=== PATIENT | male | born 1995 | race Caucasian/White ===

== ENCOUNTER 2017-10-14 04:11 | Emergency (ER) | payer OTHER ==
--- NOTE | 2017-10-14 05:02 | EDM.PDOC ---
ED HPI GENERAL MEDICAL PROBLEM - General Chief Complaint: Respiratory Problem Stated Complaint: SEVERE COUGH Time Seen by Provider: 10/14/17 05:02 Source of Information: Reports: Patient - History of Present Illness INITIAL COMMENTS - FREE TEXT/NARRATIVE: HISTORY AND PHYSICAL: History of present illness: [Patient has fever cough your pain and sore throat intermittent wheeze over the last several days family has similar symptoms No nausea vomiting chills sweats no chest pain shortness breath headache dizziness palpitation No trismus drooling or muffled voice ] Review of systems: As per history of present illness and below otherwise all systems reviewed and negative. Past medical history: As per history of present illness and as reviewed below otherwise noncontributory. Surgical history: As per history of present illness and as reviewed below otherwise noncontributory. Social history: No reported history of drug or alcohol abuse. Family history: As per history of present illness and as reviewed below otherwise noncontributory. Physical exam: HEENT: Atraumatic, normocephalic, pupils reactive, negative for conjunctival pallor or scleral icterus, mucous membranes moist, throat clear, neck supple, nontender, trachea midline. Right and left tympanic membrane red obscured loss of landmarks slight bulge no mastoid tenderness right or left no meningeal sign Lungs: Clear to auscultation, breath sounds equal bilaterally, chest nontender. Post DuoNeb Heart: S1S2, regular, negative for clicks, rubs, or JVD. Abdomen: Soft, nondistended, nontender. Negative for masses or hepatosplenomegaly. Negative for costovertebral tenderness. Pelvis: Stable nontender. Genitourinary: Deferred. Rectal: Deferred. Extremities: Atraumatic, negative for cords or calf pain. Neurovascular unremarkable. Neuro: Awake, alert, oriented. Cranial nerves II through XII unremarkable. Cerebellum unremarkable. Motor and sensory unremarkable throughout. Exam nonfocal. Diagnostics: [Strep Influenza A Chest 2 views ] Therapeutics: [DuoNeb Solu-Medrol 125 mg IM Z-Sesar HFA] Impression: Acute bronchitis [Pharyngitis Fever Bilateral otitis media] Definitive disposition and diagnosis as appropriate pending reevaluation and review of above. throat Pain Score (Numeric/FACES): 5 - Related Data Allergies Allergy/AdvReac Type Severity Reaction Status Date / Time No Known Allergies Allergy Verified 10/14/17 04:24 Home Meds: Home Meds . [No Known Home Meds] 10/14/17 [History] Past Medical History HEENT History: Reports: None Cardiovascular History: Reports: None Respiratory History: Reports: None Gastrointestinal History: Reports: None Genitourinary History: Reports: None Musculoskeletal History: Reports: None Neurological History: Reports: None Psychiatric History: Reports: None Endocrine/Metabolic History: Reports: None Hematologic History: Reports: None Immunologic History: Reports: None Oncologic (Cancer) History: Reports: None Dermatologic History: Reports: None - Infectious Disease History Infectious Disease History: Reports: None Social & Family History - Family History Family Medical History: Noncontributory - Tobacco Use Smoking Status *Q: Never Smoker - Caffeine Use Caffeine Use: Reports: Coffee, Energy Drinks, Soda - Recreational Drug Use Recreational Drug Use: No ED ROS GENERAL - Review of Systems Review Of Systems: ROS reveals no pertinent complaints other than HPI. ED EXAM, GENERAL - Physical Exam Exam: See Below Course - Vital Signs Last Recorded V/S: Last Vital Signs Temp 97 F 10/14/17 04:24 Pulse 102 H 10/14/17 04:24 Resp 18 10/14/17 04:24 BP 145/82 H 10/14/17 04:24 Pulse Ox 96 10/14/17 04:24 - Orders/Labs/Meds Orders: Active Orders 24 hr Category Date Time Status RT Aerosol Therapy [RC] ASDIRECTED Care 10/14/17 05:06 Active Chest 2V [CR] Stat Exams 10/14/17 05:06 Taken CULTURE STREP A CONFIRMATION [RM] Stat Lab 10/14/17 04:35 Results STREP SCRN A RAPID W CULT CONF [RM] Stat Lab 10/14/17 04:35 Results Meds: Medications Discontinued Medications Generic Name Dose Route Start Last Admin Trade Name Freq PRN Reason Stop Dose Admin Albuterol/Ipratropium 3 ml 10/14/17 05:05 10/14/17 05:13 Duoneb 3.0-0.5 Mg/3 Ml NEB 10/14/17 05:06 3 ml ONETIME ONE Administration Methylprednisolone Sodium Succinate 125 mg 10/14/17 05:06 10/14/17 05:13 Solu-Medrol IM 10/14/17 05:07 125 mg ONETIME ONE Administration Departure - Departure Time of Disposition: 06:08 Disposition: Home, Self-Care 01 Condition: Good Clinical Impression: Acute bronchitis - Discharge Information Referrals: PCP,None [Primary Care Provider] - Forms: ED Department Discharge Additional Instructions: The following information is given to patients seen in the emergency department who are being discharged to home. This information is to outline your options for follow-up care. We provide all patients seen in our emergency department with a follow-up referral. The need for follow-up, as well as the timing and circumstances, are variable depending upon the specifics of your emergency department visit. If you don't have a primary care physician on staff, we will provide you with a referral. We always advise you to contact your personal physician following an emergency department visit to inform them of the circumstance of the visit and for follow-up with them and/or the need for any referrals to a consulting specialist. The emergency department will also refer you to a specialist when appropriate. This referral assures that you have the opportunity for follow-up care with a specialist. All of these measure are taken in an effort to provide you with optimal care, which includes your follow-up. Under all circumstances we always encourage you to contact your private physician who remains a resource for coordinating your care. When calling for follow-up care, please make the office aware that this follow-up is from your recent emergency room visit. If for any reason you are refused follow-up, please contact the [facility] emergency department at and asked to speak to the emergency department charge nurse. - My Orders Last 24 Hours: My Active Orders 10/14/17 04:35 CULTURE STREP A CONFIRMATION [RM] Stat STREP SCRN A RAPID W CULT CONF [RM] Stat 10/14/17 05:06 RT Aerosol Therapy [RC] ASDIRECTED Chest 2V [CR] Stat - Assessment/Plan Last 24 Hours: My Active Orders 10/14/17 04:35 CULTURE STREP A CONFIRMATION [RM] Stat STREP SCRN A RAPID W CULT CONF [RM] Stat 10/14/17 05:06 RT Aerosol Therapy [RC] ASDIRECTED Chest 2V [CR] Stat
[2017-10-14] MEDS ORDERED: Albuterol/Ipratropium 3.0-0.5 MG/3 ML Neb Soln NEB ONE (05:05)
[2017-10-14] MEDS ORDERED: methylPREDNISolone Sodium Succinate 125 MG/2 ML SDV IM ONE (05:06)
--- NOTE | 2017-10-14 11:20 | CR ---
EXAM DATE: 10/14/17 PATIENT'S AGE: 21 Patient: OMAIRA YEPEZ Facility: [place], [place] Site . Site : 1995 Study: XRay Chest [id number]/[id number] 5:40:11 AM Ordering Physician: Nita Murrell Final Report: INDICATIONS: Pain. Shortness of breath. Cough 2-3 weeks. TECHNIQUE: Chest 2 view. COMPARISON: None FINDINGS: No pneumothorax, pleural effusion or airspace consolidation. Cardiac and mediastinal contours are within normal limits. Upper abdomen and osseous structures show no acute abnormality. IMPRESSION: No evidence of acute cardiopulmonary disease. Dictated by Stephen House MD @ 10/14/2017 6:00:53 AM Dictated by: Stehpen House MD @ 10/14/2017 06:01:26 (Electronic Signature) Report Signed by Proxy. GRE[facility]AK[facility] HEALTH SYSTEMBrandy
== END 2017-10-14 06:15 | disposition home or self-care (01) ==
LOC: MW.ED 04:11
DX: J20.9 Acute bronchitis, unspecified (principal); H66.93 Otitis media, unspecified, bilateral; J02.9 Acute pharyngitis, unspecified
CPT/HCPCS: 71046; 87081; 87804; 87880; 94640; 96372; 99284; J2930; 99283

== ENCOUNTER 2019-01-21 13:45 | Emergency (ER) | payer OTHER ==
[2019-01-21] MEDS ORDERED: Ketorolac 30 MG/ML SDV IVPUSH ONE (13:48)
[2019-01-21] MEDS ORDERED: Ondansetron 4 MG/2 ML SDV IVPUSH ONE (13:48)
[2019-01-21] MEDS ORDERED: Sodium Chloride 0.9% 1,000 ML IV ONE (13:48)
--- NOTE | 2019-01-21 14:41 | EDM.PDOC ---
ED HPI GENERAL MEDICAL PROBLEM - General Chief Complaint: ENT Problem Stated Complaint: MIGRAINES Time Seen by Provider: 01/21/19 14:40 Source of Information: Reports: Patient - History of Present Illness INITIAL COMMENTS - FREE TEXT/NARRATIVE: HISTORY AND PHYSICAL: History of present illness: Patient presents with sore throat increasing in severity over the last 3-4 days some difficulty with solid food no difficulty with liquid no drooling trismus or muffled voice Patient has secondary complaint of mild sinus pressure and headache no nausea vomiting chills sweats no light sensitivity pain shortness of breath dizziness or palpitation no bowel or urine symptoms Review of systems: As per history of present illness and below otherwise all systems reviewed and negative. Past medical history: As per history of present illness and as reviewed below otherwise noncontributory. Surgical history: As per history of present illness and as reviewed below otherwise noncontributory. Social history: No reported history of drug or alcohol abuse. Family history: As per history of present illness and as reviewed below otherwise noncontributory. Physical exam: HEENT: Atraumatic, normocephalic, pupils reactive, negative for conjunctival pallor or scleral icterus, mucous membranes moist, throat clear, neck supple, nontender, trachea midline. Uttered erythema no exudates Lungs: Clear to auscultation, breath sounds equal bilaterally, chest nontender. Heart: S1S2, regular, negative for clicks, rubs, or JVD. Abdomen: Soft, nondistended, nontender. Negative for masses or hepatosplenomegaly. Negative for costovertebral tenderness. Pelvis: Stable nontender. Genitourinary: Deferred. Rectal: Deferred. Extremities: Atraumatic, negative for cords or calf pain. Neurovascular unremarkable. Neuro: Awake, alert, oriented. Cranial nerves II through XII unremarkable. Cerebellum unremarkable. Motor and sensory unremarkable throughout. Exam nonfocal. Diagnostics: [Strep/fluid ] Therapeutics: [Augmentin ] Impression: [Pharyngitis ] Definitive disposition and diagnosis as appropriate pending reevaluation and review of above. throat Pain Score (Numeric/FACES): 9 - Related Data Allergies Allergy/AdvReac Type Severity Reaction Status Date / Time No Known Allergies Allergy Verified 01/21/19 13:57 Home Meds: Home Meds . [No Known Home Meds] 10/14/17 [History] Past Medical History HEENT History: Reports: None Cardiovascular History: Reports: None Respiratory History: Reports: None Gastrointestinal History: Reports: None Genitourinary History: Reports: None Musculoskeletal History: Reports: None Neurological History: Reports: None Psychiatric History: Reports: None Endocrine/Metabolic History: Reports: None Hematologic History: Reports: None Immunologic History: Reports: None Oncologic (Cancer) History: Reports: None Dermatologic History: Reports: None - Infectious Disease History Infectious Disease History: Reports: None Social & Family History - Family History Family Medical History: Noncontributory - Tobacco Use Smoking Status *Q: Current Every Day Smoker Years of Tobacco use: 2 Packs/Tins Daily: 0.5 - Caffeine Use Caffeine Use: Reports: Coffee, Energy Drinks, Soda - Recreational Drug Use Recreational Drug Use: No ED ROS GENERAL - Review of Systems Review Of Systems: See Below ED EXAM, GENERAL - Physical Exam Exam: See Below Course - Vital Signs Last Recorded V/S: Last Vital Signs Temp 98.5 F 01/21/19 13:54 Pulse 113 H 01/21/19 13:54 Resp 18 01/21/19 13:54 BP 147/79 H 01/21/19 13:54 Pulse Ox 95 01/21/19 13:54 - Orders/Labs/Meds Orders: Active Orders 24 hr Category Date Time Status CULTURE STREP A CONFIRMATION [] Stat Lab 01/21/19 14:03 Results STREP SCRN A RAPID W CULT CONF [] Stat Lab 01/21/19 14:03 Results Meds: Medications Discontinued Medications Generic Name Dose Route Start Last Admin Trade Name Freq PRN Reason Stop Dose Admin Sodium Chloride 1,000 mls @ 999 mls/hr 01/21/19 13:48 01/21/19 14:09 Normal Saline IV 01/21/19 14:48 Not Given STAT ONE Ketorolac Tromethamine 30 mg 01/21/19 13:48 01/21/19 14:10 Toradol IVPUSH 01/21/19 13:49 Not Given ONETIME ONE Ondansetron HCl 8 mg 01/21/19 13:48 01/21/19 14:10 Zofran IVPUSH 01/21/19 13:49 Not Given ONETIME ONE Departure - Departure Time of Disposition: 14:43 Disposition: Home, Self-Care 01 Condition: Good Clinical Impression: Pharyngitis - Discharge Information Referrals: PCP,None [Primary Care Provider] - Forms: ED Department Discharge Additional Instructions: The following information is given to patients seen in the emergency department who are being discharged to home. This information is to outline your options for follow-up care. We provide all patients seen in our emergency department with a follow-up referral. The need for follow-up, as well as the timing and circumstances, are variable depending upon the specifics of your emergency department visit. If you don't have a primary care physician on staff, we will provide you with a referral. We always advise you to contact your personal physician following an emergency department visit to inform them of the circumstance of the visit and for follow-up with them and/or the need for any referrals to a consulting specialist. The emergency department will also refer you to a specialist when appropriate. This referral assures that you have the opportunity for follow-up care with a specialist. All of these measure are taken in an effort to provide you with optimal care, which includes your follow-up. Under all circumstances we always encourage you to contact your private physician who remains a resource for coordinating your care. When calling for follow-up care, please make the office aware that this follow-up is from your recent emergency room visit. If for any reason you are refused follow-up, please contact the [facility] emergency department at and asked to speak to the emergency department charge nurse. - My Orders Last 24 Hours: My Active Orders 01/21/19 14:03 CULTURE STREP A CONFIRMATION [RM] Stat STREP SCRN A RAPID W CULT CONF [RM] Stat - Assessment/Plan Last 24 Hours: My Active Orders 01/21/19 14:03 CULTURE STREP A CONFIRMATION [RM] Stat STREP SCRN A RAPID W CULT CONF [RM] Stat
== END 2019-01-21 15:00 | disposition home or self-care (01) ==
LOC: MW.ED 13:45
DX: J02.9 Acute pharyngitis, unspecified (principal); F17.210 Nicotine dependence, cigarettes, uncomplicated
CPT/HCPCS: 87081; 87804; 87880-QW; 99283

== ENCOUNTER 2020-01-24 00:49 | Emergency (ER) | payer SELFPAY ==
--- NOTE | 2020-01-24 01:07 | EDM.PDOC ---
ED HPI GENERAL MEDICAL PROBLEM - General Chief Complaint: Lower Extremity Injury/Pain Stated Complaint: SWOLLEN LT ANKLE Time Seen by Provider: 01/24/20 00:57 Source of Information: Reports: Patient - History of Present Illness INITIAL COMMENTS - FREE TEXT/NARRATIVE: The patient is a 24-year-old male who presents to the ER secondary to left ankle pain. The patient states that he sprained his ankle a couple of weeks ago but then it got better. He states that a couple of days ago he started having pain in his left ankle but he does not recall any trauma. Tonight he woke up and it was swollen and painful. He has not taken anything for pain. left ankle Pain Score (Numeric/FACES): 8 - Related Data Allergies Allergy/AdvReac Type Severity Reaction Status Date / Time No Known Allergies Allergy Verified 01/24/20 00:58 Home Meds: Home Meds . [No Known Home Meds] 10/14/17 [History] Past Medical History HEENT History: Reports: None Cardiovascular History: Reports: None Respiratory History: Reports: None Gastrointestinal History: Reports: None Genitourinary History: Reports: None Musculoskeletal History: Reports: None Neurological History: Reports: None Psychiatric History: Reports: None Endocrine/Metabolic History: Reports: None Hematologic History: Reports: None Immunologic History: Reports: None Oncologic (Cancer) History: Reports: None Dermatologic History: Reports: None - Infectious Disease History Infectious Disease History: Reports: None Social & Family History - Family History Family Medical History: Noncontributory - Caffeine Use Caffeine Use: Reports: Coffee, Energy Drinks, Soda Review of Systems - Review of Systems Review Of Systems: See Below (Positive for left ankle pain and swelling, negative for knee pain, negative for calf pain, all other Positives and pertinent negatives as per HPI. All other pertinent systems were reviewed and are negative) ED EXAM, GENERAL - Physical Exam Exam: See Below Free Text/Narrative:: Constitutional: No acute distress, Non-toxic appearance. HEENT: Normocephalic, Atraumatic, EOMI Neck: Normal range of motion, No stridor, trachea midline Respiratory: No respiratory distress, No tachypnea Cardiovascular: Deferred Gastrointestinal: Deferred Genital / Urinary: Deferred Musculoskeletal: All four extremities present and atraumatic with the exception of some swelling and tenderness along the left ankle lateral malleolus, talofibular ligaments, and a small amount of ecchymosis and tenderness along the left lateral, dorsal cuboid Back: FROM Integument: Warm, Dry, Color is ethnicity appropriate, No rash. Neuro: Alert, Awake, No focal deficits noted Psych: Affect, Judgement, mood normal Course - Vital Signs Text/Narrative:: I talked to the patient thoroughly as his physical exam is consistent with a classic ankle sprain but he absolutely denies any recent trauma. X-ray of the left ankle and foot (secondary to the small amount of tenderness and ecchymosis over the cuboid ) was reviewed and interpreted by me -no fractures or dislocations are noted in the ankle or the foot, there is some lateral soft tissue swelling. I talked with the patient that I suspect that after spraining his ankle, he has been overdoing it recently and just reaggravated the injury. The patient will be provided with an Aircast and was given education and he is stable for discharge. Last Recorded V/S: Last Vital Signs Temp 35.9 C L 01/24/20 00:59 Pulse 100 01/24/20 00:59 Resp 16 01/24/20 00:59 BP 159/84 H 01/24/20 00:59 Pulse Ox 99 01/24/20 00:59 - Orders/Labs/Meds Orders: Active Orders 24 hr Category Date Time Status Ankle Min 3V Lt [CR] Stat Exams 01/24/20 00:56 Ordered Foot Comp Min 3V Lt [CR] Stat Exams 01/24/20 00:56 Ordered Departure - Departure Time of Disposition: 01:13 Disposition: Home, Self-Care 01 Condition: Good Clinical Impression: Ankle sprain - Discharge Information Instructions: How to Use a Stirrup Ankle Brace, [id number] Referrals: PCP,None [Primary Care Provider] - Forms: ED Department Discharge Additional Instructions: Ibuprofen, Tylenol and ice and elevation and gradually return to normal activities as tolerated (sometimes this can take weeks ) Sepsis Event Note - Focused Exam Vital Signs: Vital Signs Temp Pulse Resp BP Pulse Ox 01/24/20 00:59 35.9 C L 100 16 159/84 H 99 Date Exam was Performed: 01/24/20 Time Exam was Performed: 01:12 - My Orders Last 24 Hours: My Active Orders 01/24/20 00:56 Ankle Min 3V Lt [CR] Stat Foot Comp Min 3V Lt [CR] Stat - Assessment/Plan Last 24 Hours: My Active Orders 01/24/20 00:56 Ankle Min 3V Lt [CR] Stat Foot Comp Min 3V Lt [CR] Stat
[2020-01-24] MEDS ORDERED: Ibuprofen 800 MG Tab PO ONE (01:15)
--- NOTE | 2020-01-24 01:21 | CR ---
Indication: Pain Technique: Three views left ankle Comparison: None Findings: Bones: Alignment is normal. No fractures or bone lesions. Joint spaces: Unremarkable. Soft tissues: Unremarkable. Impression: Negative. Dictated by Evette Duran MD @ Jan 24 2020 1:19AM Signed by Dr. Evette Duran @ Jan 24 2020 1:19AM
--- NOTE | 2020-01-24 01:23 | CR ---
Indication: Pain Technique: Three views left foot Comparison: None Findings: Bones: Alignment is normal. No fractures or bone lesions. Joint spaces: Unremarkable. Soft tissues: Unremarkable. Impression: Negative. Dictated by Evette Duran MD @ Jan 24 2020 1:19AM Signed by Dr. Evette Duran @ Jan 24 2020 1:21AM
== END 2020-01-24 01:46 | disposition home or self-care (01) ==
LOC: MW.ED 00:49
DX: S93.402A Sprain of unspecified ligament of left ankle, initial encounter (principal); X58.XXXA Exposure to other specified factors, initial encounter
CPT/HCPCS: 73610-26-LT; 73610-LT; 73630-26-LT; 73630-LT; 99283